=== PATIENT | female | born 1980 | race American Indian/Alaskan Native ===

== ENCOUNTER 2019-01-16 07:34 | Emergency (ER) | payer SELFPAY ==
[2019-01-16 07:41] VITALS: BP 126/88
--- NOTE | 2019-01-16 08:26 | Emergency Department Report ---
ED N/V/D HPI - General Chief complaint: Fever Stated complaint: FEVER/ABDOMINAL PAIN Time Seen by Provider: 01/16/19 08:18 Source: patient Mode of arrival: Ambulatory Limitations: No Limitations - History of Present Illness Initial comments: Mrs. Samayoa is a healthy 38-year-old female without significant past medical history who presents with fever and diarrhea. She has mild diffuse intermittent abdominal cramping. She had greater than 5 stools on and yesterday. 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 Denies back pain. Denies dysuria. Denies vaginal discharge. Denies headache. Denies sore throat. No recent travel. MD complaint: diarrhea, abdominal pain -: days(s) (2) Description of Vomiting: watery Description of Diarrhea: water Associated Abdominal Pain: Yes Location: diffuse Severity: mild Pain Scale: 5 Quality: cramping Consistency: intermittent Improves with: none Worsens with: none Context: sick contacts Associated Symptoms: malaise - Related Data Previous Rx's Medication Instructions Recorded Last Taken Type traMADol [Ultram 50 MG tab] 50 mg PO Q6HR PRN #20 tablet 08/09/14 Unknown Rx Acetaminophen/Codeine [Tylenol #3] 1 tab PO Q6H PRN #16 tab 12/22/15 Unknown Rx Sulfamethoxazole/Trimethoprim 1 each PO BID #14 tablet 12/22/15 Unknown Rx [Bactrim DS TAB] Ciprofloxacin HCl [Ciprofloxacin 500 mg PO Q12HR 3 Days #6 tab 01/16/19 Unknown Rx TAB] Loperamide [Imodium] 2 tab PO QID 2 Days #16 capsule 01/16/19 Unknown Rx Allergies Allergy/AdvReac Type Severity Reaction Status Date / Time aspirin Allergy Unknown Verified 01/16/19 07:35 ED Review of Systems ROS: Stated complaint: FEVER/ABDOMINAL PAIN Other details as noted in HPI Comment: All other systems reviewed and negative Constitutional: fever, malaise Gastrointestinal: abdominal pain, nausea, diarrhea ED Past Medical Hx - Past Medical History Previous Medical History?: No - Surgical History Past Surgical History?: No - Social History Smoking Status: Never Smoker Substance Use Type: None - Medications Home Medications: Home Medications Medication Instructions Recorded Confirmed Last Taken Type traMADol [Ultram 50 MG tab] 50 mg PO Q6HR PRN #20 tablet 08/09/14 Unknown Rx Acetaminophen/Codeine [Tylenol #3] 1 tab PO Q6H PRN #16 tab 12/22/15 Unknown Rx Sulfamethoxazole/Trimethoprim 1 each PO BID #14 tablet 12/22/15 Unknown Rx [Bactrim DS TAB] Ciprofloxacin HCl [Ciprofloxacin 500 mg PO Q12HR 3 Days #6 tab 01/16/19 Unknown Rx TAB] Loperamide [Imodium] 2 tab PO QID 2 Days #16 capsule 01/16/19 Unknown Rx ED Physical Exam - General Limitations: No Limitations General appearance: alert, in no apparent distress - Head Head exam: Present: atraumatic, normocephalic - Eye Eye exam: Present: normal appearance - ENT ENT exam: Present: mucous membranes moist - Neck Neck exam: Present: normal inspection, full ROM. Absent: tenderness, meningismus - Respiratory Respiratory exam: Present: normal lung sounds bilaterally. Absent: respiratory distress, wheezes, rales, rhonchi - Cardiovascular Cardiovascular Exam: Present: regular rate, normal rhythm, normal heart sounds. Absent: systolic murmur, diastolic murmur, rubs, gallop - GI/Abdominal GI/Abdominal exam: Present: soft, normal bowel sounds. Absent: distended, tenderness, guarding, rebound - Extremities Exam Extremities exam: Present: normal inspection - Back Exam Back exam: Present: normal inspection - Neurological Exam Neurological exam: Present: alert, oriented X3 - Psychiatric Psychiatric exam: Present: normal affect, normal mood - Skin Skin exam: Present: warm, dry, intact, normal color. Absent: rash ED Course Vital Signs 01/16/19 07:39 Temperature 98.5 F Pulse Rate 72 Respiratory 16 Rate Blood Pressure 126/88 [Left] O2 Sat by Pulse 100 Oximetry ED Medical Decision Making - Medical Decision Making This is a healthy 38-year-old female who presents with fever abdominal pain and diarrhea. 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 Did consider C. difficile colitis. However she does not appear toxic. She has only had 5-8 stools per day. Will initiate ciprofloxacin therapy as well as loperamide. She understands return to the emergency department if symptoms have not improved. Critical care attestation.: If time is entered above; I have spent that time in minutes in the direct care of this critically ill patient, excluding procedure time. ED Disposition Clinical Impression: Infectious diarrhea in adult patient Disposition: DC-01 TO HOME OR SELFCARE Is pt being admited?: No Does the pt Need Aspirin: No Condition: Stable Instructions: Acute Diarrhea (ED) Prescriptions: Ciprofloxacin HCl [Ciprofloxacin TAB] 500 mg PO Q12HR 3 Days #6 tab Loperamide [Imodium] 2 tab PO QID 2 Days #16 capsule Referrals: [facility] [Outside] - 3-5 Days Forms: Work/School Release Form(ED)
== END 2019-01-16 08:36 | disposition home or self-care (01) ==
LOC: ED 07:34
DX: A09 Infectious gastroenteritis and colitis, unspecified (principal); R50.9 Fever, unspecified; Z88.6 Allergy status to analgesic agent

== ENCOUNTER 2019-05-02 11:09 | Emergency (ER) | payer SELFPAY ==
[2019-05-02 11:20] VITALS: BP 118/74
--- NOTE | 2019-05-02 11:23 | Event Note ---
ED Screening Note ED Screening Note: states she has two abscesses under the right axilla that began a week ago states they are open and draining began two days ago states she had a subjective fever two days ago but has not had anything since has had before had had an I&D earlier this year no PMHx allergy: aspirin LNMP: two weeks ago
--- NOTE | 2019-05-02 11:24 | Emergency Department Report ---
- General Chief complaint: Skin/Abscess/Foreign Body Stated complaint: RT UNDERARM BOIL/PAIN Time Seen by Provider: 05/02/19 11:19 Source: patient Mode of arrival: Ambulatory Limitations: No Limitations - History of Present Illness Initial comments: pt is a 38 yo female who presents to the ED with c/o two abscesses under the right axilla that began a week ago. she states they are open and draining which began two days ago. the patient states she had a subjective fever two days ago but has not had one since then. pt states she has had these before. pt states she had to have an I&D earlier this year. she denies any PMHx. allergy: aspirin. LNMP: two weeks ago - Related Data Previous Rx's Medication Instructions Recorded Last Taken Type traMADoL [Ultram 50 MG tab] 50 mg PO Q6HR PRN #20 tablet 08/09/14 Unknown Rx Acetaminophen/Codeine [Tylenol #3] 1 tab PO Q6H PRN #16 tab 12/22/15 Unknown Rx Sulfamethoxazole/Trimethoprim 1 each PO BID #14 tablet 12/22/15 Unknown Rx [Bactrim DS TAB] Ciprofloxacin HCl [Ciprofloxacin 500 mg PO Q12HR 3 Days #6 tab 01/16/19 Unknown Rx TAB] Loperamide [Imodium] 2 tab PO QID 2 Days #16 capsule 01/16/19 Unknown Rx Sulfamethoxazole/Trimethoprim 1 each PO BID 7 Days #14 tablet 05/02/19 Unknown Rx [Bactrim DS TAB] Allergies Allergy/AdvReac Type Severity Reaction Status Date / Time aspirin Allergy Unknown Verified 05/02/19 11:10 Abscess Boil HPI - HPI Chief Complaint: Skin/Abscess/Foreign Body Stated Complaint: RT UNDERARM BOIL/PAIN Time Seen by Provider: 05/02/19 11:19 Home Medications: Previous Rx's Medication Instructions Recorded Last Taken Type traMADoL [Ultram 50 MG tab] 50 mg PO Q6HR PRN #20 tablet 08/09/14 Unknown Rx Acetaminophen/Codeine [Tylenol #3] 1 tab PO Q6H PRN #16 tab 12/22/15 Unknown Rx Sulfamethoxazole/Trimethoprim 1 each PO BID #14 tablet 12/22/15 Unknown Rx [Bactrim DS TAB] Ciprofloxacin HCl [Ciprofloxacin 500 mg PO Q12HR 3 Days #6 tab 01/16/19 Unknown Rx TAB] Loperamide [Imodium] 2 tab PO QID 2 Days #16 capsule 01/16/19 Unknown Rx Sulfamethoxazole/Trimethoprim 1 each PO BID 7 Days #14 tablet 05/02/19 Unknown Rx [Bactrim DS TAB] Allergies/Adverse Reactions: Allergies Allergy/AdvReac Type Severity Reaction Status Date / Time aspirin Allergy Unknown Verified 05/02/19 11:10 ED Review of Systems ROS: Stated complaint: RT UNDERARM BOIL/PAIN Other details as noted in HPI Comment: All other systems reviewed and negative ED Past Medical Hx - Past Medical History Previous Medical History?: No - Surgical History Past Surgical History?: No - Social History Smoking Status: Never Smoker Substance Use Type: None - Medications Home Medications: Home Medications Medication Instructions Recorded Confirmed Last Taken Type traMADoL [Ultram 50 MG tab] 50 mg PO Q6HR PRN #20 tablet 08/09/14 Unknown Rx Acetaminophen/Codeine [Tylenol #3] 1 tab PO Q6H PRN #16 tab 12/22/15 Unknown Rx Sulfamethoxazole/Trimethoprim 1 each PO BID #14 tablet 12/22/15 Unknown Rx [Bactrim DS TAB] Ciprofloxacin HCl [Ciprofloxacin 500 mg PO Q12HR 3 Days #6 tab 01/16/19 Unknown Rx TAB] Loperamide [Imodium] 2 tab PO QID 2 Days #16 capsule 01/16/19 Unknown Rx Sulfamethoxazole/Trimethoprim 1 each PO BID 7 Days #14 tablet 05/02/19 Unknown Rx [Bactrim DS TAB] ED Physical Exam - General Limitations: No Limitations General appearance: alert, in no apparent distress - Head Head exam: Present: atraumatic, normocephalic - Eye Eye exam: Present: normal appearance - ENT ENT exam: Present: mucous membranes moist - Neurological Exam Neurological exam: Present: alert, oriented X3 - Psychiatric Psychiatric exam: Present: normal affect, normal mood - Skin Skin exam: Present: warm, other (multiple areas of induration to the right axilla, two areas are open but no current drainage, no areas of central fluctuance, erythema and increased warmth present, no tracking up the arm) ED Course Vital Signs 05/02/19 11:19 Temperature 98.3 F Pulse Rate 87 Respiratory 16 Rate Blood Pressure 118/74 O2 Sat by Pulse 99 Oximetry ED Medical Decision Making - Medical Decision Making pt is a 38 yo female who presents to the ED with c/o two abscesses under the right axilla that began a week ago. she states they are open and draining which began two days ago. the patient states she had a subjective fever two days ago but has not had one since then. pt states she has had these before. pt states she had to have an I&D earlier this year. she denies any PMHx. allergy: aspirin. LNMP: two weeks ago. vitals are normal. on exam: multiple areas of induration to the right axilla, two areas are open but no current drainage, no areas of central fluctuance, erythema and increased warmth present, no tracking up the arm. no drainable abscess at this time, just appears to be cellulitis, pt could possibly have Hidradenitis suppurativa given she has these frequently in the axilla. pt prescribed abx and advised to use warm compresses. discussed with pt that she needed reevaluation by a PCP in 3 days to reassess. pt given prescription for bactrim. advised pt to please take medication as prescribed. follow up with a primary care doctor in the next 3 days for reexamination. use warm compresses three times a day. return to the emergency room for any new or worsening symptoms. - Differential Diagnosis abscess, cellulitis, hidradenitis suppurativa Critical care attestation.: If time is entered above; I have spent that time in minutes in the direct care of this critically ill patient, excluding procedure time. ED Disposition Clinical Impression: Cellulitis Qualifiers: Site of cellulitis: extremity Site of cellulitis of extremity: axilla Laterality: right Qualified Code(s): L03.111 - Cellulitis of right axilla Disposition: DC-01 TO HOME OR SELFCARE Is pt being admited?: No Does the pt Need Aspirin: No Condition: Stable Instructions: Cellulitis (ED) Additional Instructions: please take medication as prescribed. follow up with a primary care doctor in the next 3 days for reexamination. use warm compresses three times a day. return to the emergency room for any new or worsening symptoms. Prescriptions: Sulfamethoxazole/Trimethoprim [Bactrim DS TAB] 1 each PO BID 7 Days #14 tablet Referrals: MARY ANNE EVANS MD [Staff Physician] - 2-3 Days Forms: Work/School Release Form(ED) Time of Disposition: 11:41 Print Language: FAROESE
== END 2019-05-02 11:50 | disposition home or self-care (01) ==
LOC: ED 11:09
DX: L03.111 Cellulitis of right axilla (principal); Z79.899 Other long term (current) drug therapy; Z88.8 Allergy status to other drugs, medicaments and biological substances

== ENCOUNTER 2020-01-07 05:35 | Emergency (ER) | payer MEDICAID ==
[2020-01-07] MEDS ORDERED: HYDROmorphone 1 MG/1 ML INJ IV ONE (06:00)
[2020-01-07] MEDS ORDERED: ONDANSETRON 4 MG/2 ML INJ IV ONE (06:00)
[2020-01-07] MEDS ORDERED: SULFAMETHOXAZOLE/TRIMETHOPRIM 800/160MG DS TAB PO ONE (06:00)
[2020-01-07 06:30] LABS: Basophils % (Auto) 0.4 % (0.0-1.8); Eosinophils % (Auto) 0.3 % (0.0-4.3); Hemoglobin 11.9 gm/dl (10.1-14.3); Lymphocytes # (Auto) 1.4 K/mm3 (1.2-5.4); Lymphocytes % (Auto) 20.2 % (13.4-35.0); Mean Corpuscular HGB Conc 34 % (30-34); Mean Corpuscular Volume 88 fl (79-97); Monocytes # (Auto) 0.4 K/mm3 (0.0-0.8); Monocytes % (Auto) 5.2 % (0.0-7.3); Platelet Count 302 K/mm3 (140-440); Red Blood Count 3.96 M/mm3 (3.65-5.03)
[2020-01-07 06:42] LABS: BUN/Creatinine Ratio 9
[2020-01-07 06:54] LABS: Alanine Aminotransferase 12 units/L (7-56); Albumin 3.9 g/dL (3.9-5); Blood Urea Nitrogen 8 mg/dL (7-17); Calcium 9.1 mg/dL (8.4-10.2)
--- NOTE | 2020-01-07 08:17 | Emergency Department Report ---
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 States that she felt a little feverish to 2 days ago but has since resolved reports no nausea, no vomiting, no chest pain, no palpitations or trauma to the area no drainage. The areas is more uncomfortable with palpation and when the arm is in the outstretched position. MD complaint: abscess/boil -: Gradual Severity: mild, moderate Quality: aching, dull Consistency: constant Improves with: none Worsens with: none - Related Data Previous Rx's Medication Instructions Recorded Last Taken Type Acetaminophen/Codeine [Tylenol #3] 1 tab PO Q6H PRN #16 tab 12/22/15 Unknown Rx Sulfamethoxazole/Trimethoprim 1 each PO BID #14 tablet 12/22/15 Unknown Rx [Bactrim DS TAB] Ciprofloxacin HCl [Ciprofloxacin 500 mg PO Q12HR 3 Days #6 tab 01/16/19 Unknown Rx TAB] Loperamide [Imodium] 2 tab PO QID 2 Days #16 capsule 01/16/19 Unknown Rx Sulfamethoxazole/Trimethoprim 1 each PO BID 7 Days #14 tablet 05/02/19 Unknown Rx [Bactrim DS TAB] Clindamycin [Clindamycin CAP] 150 mg PO Q8HR #30 capsule 01/07/20 Unknown Rx traMADoL [Ultram 50 MG tab] 50 mg PO Q6HR PRN #20 tablet 01/07/20 Unknown Rx Allergies Allergy/AdvReac Type Severity Reaction Status Date / Time aspirin Allergy Unknown Verified 05/02/19 11:10 Abscess Boil HPI - HPI Chief Complaint: Skin/Abscess/Foreign Body Stated Complaint: BOIL UNDER LEFT ARM Time Seen by Provider: 01/07/20 06:56 Home Medications: Previous Rx's Medication Instructions Recorded Last Taken Type Acetaminophen/Codeine [Tylenol #3] 1 tab PO Q6H PRN #16 tab 12/22/15 Unknown Rx Sulfamethoxazole/Trimethoprim 1 each PO BID #14 tablet 12/22/15 Unknown Rx [Bactrim DS TAB] Ciprofloxacin HCl [Ciprofloxacin 500 mg PO Q12HR 3 Days #6 tab 01/16/19 Unknown Rx TAB] Loperamide [Imodium] 2 tab PO QID 2 Days #16 capsule 01/16/19 Unknown Rx Sulfamethoxazole/Trimethoprim 1 each PO BID 7 Days #14 tablet 05/02/19 Unknown Rx [Bactrim DS TAB] Clindamycin [Clindamycin CAP] 150 mg PO Q8HR #30 capsule 01/07/20 Unknown Rx traMADoL [Ultram 50 MG tab] 50 mg PO Q6HR PRN #20 tablet 01/07/20 Unknown Rx Allergies/Adverse Reactions: Allergies Allergy/AdvReac Type Severity Reaction Status Date / Time aspirin Allergy Unknown Verified 05/02/19 11:10 ED Review of Systems Comment: All other systems reviewed and negative ED Past Medical Hx - Past Medical History Previous Medical History?: No - Surgical History Past Surgical History?: No - Social History Smoking Status: Never Smoker Substance Use Type: None - Medications Home Medications: Home Medications Medication Instructions Recorded Confirmed Last Taken Type Acetaminophen/Codeine [Tylenol #3] 1 tab PO Q6H PRN #16 tab 12/22/15 Unknown Rx Sulfamethoxazole/Trimethoprim 1 each PO BID #14 tablet 12/22/15 Unknown Rx [Bactrim DS TAB] Ciprofloxacin HCl [Ciprofloxacin 500 mg PO Q12HR 3 Days #6 tab 01/16/19 Unknown Rx TAB] Loperamide [Imodium] 2 tab PO QID 2 Days #16 capsule 01/16/19 Unknown Rx Sulfamethoxazole/Trimethoprim 1 each PO BID 7 Days #14 tablet 05/02/19 Unknown Rx [Bactrim DS TAB] Clindamycin [Clindamycin CAP] 150 mg PO Q8HR #30 capsule 01/07/20 Unknown Rx traMADoL [Ultram 50 MG tab] 50 mg PO Q6HR PRN #20 tablet 01/07/20 Unknown Rx ED Physical Exam - General Limitations: No Limitations General appearance: alert, in no apparent distress - Head Head exam: Present: atraumatic, normocephalic - Eye Eye exam: Present: normal appearance - ENT ENT exam: Present: mucous membranes moist - Neck Neck exam: Present: normal inspection - Respiratory Respiratory exam: Present: normal lung sounds bilaterally. Absent: respiratory distress - Cardiovascular Cardiovascular Exam: Present: regular rate, normal rhythm. Absent: systolic murmur, diastolic murmur, rubs, gallop - GI/Abdominal GI/Abdominal exam: Present: soft, normal bowel sounds - Extremities Exam Extremities exam: Present: normal inspection - Back Exam Back exam: Present: normal inspection - Neurological Exam Neurological exam: Present: alert, oriented X3 - Psychiatric Psychiatric exam: Present: normal affect, normal mood - Skin Skin exam: Present: warm, dry, erythema, other. Absent: rash - Expanded Skin Exam Expanded 1 - Swelling to her left axilla area with induration tenderness mild cellulitis is noted. Nose no discharge. No lymphadenopathy. No lymphangitis. - Procedure Description Procedures done: PRE-OP DIAGNOSIS: *Abscess. POST-OP DIAGNOSIS: Same. PROCEDURE: incision and drainage of abscess. Performing Physician/advanced practice provider: Rigoberto Ryan_. . PROCEDURE: A timeout protocol was performed prior to initiating the procedure. The area was prepared and draped in the usual, sterile manner. The site was anesthetized with 2% lidocaine without epinephrine. A linear incision was along the local skin lines was made and the purulent material expressed. The abcess was explored thoroughly and sequestered pockets were opened. Wound was irrigated with normal saline and bleeding was minimal. Packing: Quarter inch iodoform x9 cm. . Followup: The patient tolerated the procedure well without complications. Standard post- procedure care is explained and return precautions are given. ED Medical Decision Making - Lab Data Result diagrams: 01/07/20 06:06 01/07/20 06:06 ED Disposition Clinical Impression: Abscess of axilla, left Disposition: DC-01 TO HOME OR SELFCARE Is pt being admited?: No Does the pt Need Aspirin: No Condition: Stable Instructions: Abscess Incision and Drainage (ED) Prescriptions: Clindamycin [Clindamycin CAP] 150 mg PO Q8HR #30 capsule traMADoL [Ultram 50 MG tab] 50 mg PO Q6HR PRN #20 tablet PRN Reason: Pain Referrals: [facility] [Provider Group] - 3-5 Days Forms: Accompanied Note, Work/School Release Form(ED) <NOE CRUZ - Last Filed: 01/08/20 13:50> ED Review of Systems ROS: Stated complaint: BOIL UNDER LEFT ARM Other details as noted in HPI ED Course - Reevaluation(s) Reevaluation #1: I was told by the nurse practitioner that he contacted the patient about her elevated potassium and glucose level. He stated that he told her to follow-up on this as soon as possible. 01/08/20 13:49 ED Medical Decision Making - Lab Data Result diagrams: 01/07/20 06:06 01/07/20 06:06 Critical care attestation.: If time is entered above; I have spent that time in minutes in the direct care of this critically ill patient, excluding procedure time. ED Disposition Is pt being admited?: No Does the pt Need Aspirin: No
[2020-01-07] MEDS ORDERED: SODIUM CHLORIDE 0.9% 1000 ML 1,000 ML IV ONE (08:18)
== END 2020-01-07 10:58 | disposition home or self-care (01) ==
LOC: ED 05:35
DX: L02.412 Cutaneous abscess of left axilla (principal); Z79.2 Long term (current) use of antibiotics; Z79.899 Other long term (current) drug therapy; Z88.6 Allergy status to analgesic agent
CPT/HCPCS: 10060; 36415; 80053; 82140; 84703; 85025; 96361; 96365; 96366; 96375; 99283; J1170; J2405; J7030; 80048

== ENCOUNTER 2020-01-07 15:33 | Emergency (ER) | payer MEDICAID ==
[2020-01-07 15:46] VITALS: BP 134/86
[2020-01-07 16:31] LABS: Blood Urea Nitrogen 6 mg/dL (7-17); Calcium 9.2 mg/dL (8.4-10.2); Hemolysis Index 2
[2020-01-07 16:33] LABS: BUN/Creatinine Ratio 9
[2020-01-07] MEDS ORDERED: HYDROcodone/ACETAMINOPHEN 5-325 MG TAB PO STA (17:01)
--- NOTE | 2020-01-07 17:09 | Emergency Department Report ---
ED General Adult HPI - General Chief complaint: Recheck/Abnormal Lab/Rx Stated complaint: BLOOD WORK Time Seen by Provider: 01/07/20 15:50 Source: patient Mode of arrival: Ambulatory Limitations: No Limitations - History of Present Illness Initial comments: 39-year-old F [place] female seen earlier today for an abscess on her left arm which was incised and drained after. Labs were ordered by the previous provider and found to have a potassium that was elevated and she returns today to have it rechecked. Asymptomatic states that her incision site feels well but having some dull throbbing to the region reports no fevers chills or sweats. No known history of any diabetes. - Related Data Previous Rx's Medication Instructions Recorded Last Taken Type Acetaminophen/Codeine [Tylenol #3] 1 tab PO Q6H PRN #16 tab 12/22/15 Unknown Rx Sulfamethoxazole/Trimethoprim 1 each PO BID #14 tablet 12/22/15 Unknown Rx [Bactrim DS TAB] Ciprofloxacin HCl [Ciprofloxacin 500 mg PO Q12HR 3 Days #6 tab 01/16/19 Unknown Rx TAB] Loperamide [Imodium] 2 tab PO QID 2 Days #16 capsule 01/16/19 Unknown Rx Sulfamethoxazole/Trimethoprim 1 each PO BID 7 Days #14 tablet 05/02/19 Unknown Rx [Bactrim DS TAB] Clindamycin [Clindamycin CAP] 150 mg PO Q8HR #30 capsule 01/07/20 Unknown Rx traMADoL [Ultram 50 MG tab] 50 mg PO Q6HR PRN #20 tablet 01/07/20 Unknown Rx Allergies Allergy/AdvReac Type Severity Reaction Status Date / Time aspirin Allergy Unknown Verified 05/02/19 11:10 ED Review of Systems ROS: Stated complaint: BLOOD WORK Other details as noted in HPI Comment: All other systems reviewed and negative ED Past Medical Hx - Past Medical History Previous Medical History?: No - Surgical History Past Surgical History?: No - Social History Smoking Status: Never Smoker Substance Use Type: None - Medications Home Medications: Home Medications Medication Instructions Recorded Confirmed Last Taken Type Acetaminophen/Codeine [Tylenol #3] 1 tab PO Q6H PRN #16 tab 12/22/15 Unknown Rx Sulfamethoxazole/Trimethoprim 1 each PO BID #14 tablet 12/22/15 Unknown Rx [Bactrim DS TAB] Ciprofloxacin HCl [Ciprofloxacin 500 mg PO Q12HR 3 Days #6 tab 01/16/19 Unknown Rx TAB] Loperamide [Imodium] 2 tab PO QID 2 Days #16 capsule 01/16/19 Unknown Rx Sulfamethoxazole/Trimethoprim 1 each PO BID 7 Days #14 tablet 05/02/19 Unknown Rx [Bactrim DS TAB] Clindamycin [Clindamycin CAP] 150 mg PO Q8HR #30 capsule 01/07/20 Unknown Rx traMADoL [Ultram 50 MG tab] 50 mg PO Q6HR PRN #20 tablet 01/07/20 Unknown Rx ED Physical Exam - General Limitations: No Limitations General appearance: alert, in no apparent distress - Head Head exam: Present: atraumatic, normocephalic - Eye Eye exam: Present: normal appearance - ENT ENT exam: Present: mucous membranes moist - Neck Neck exam: Present: normal inspection - Respiratory Respiratory exam: Present: normal lung sounds bilaterally. Absent: respiratory distress - Cardiovascular Cardiovascular Exam: Present: regular rate, normal rhythm. Absent: systolic murmur, diastolic murmur, rubs, gallop - GI/Abdominal GI/Abdominal exam: Present: soft, normal bowel sounds - Extremities Exam Extremities exam: Present: normal inspection - Back Exam Back exam: Present: normal inspection - Neurological Exam Neurological exam: Present: alert, oriented X3 - Psychiatric Psychiatric exam: Present: normal affect, normal mood - Skin Skin exam: Present: warm, dry, intact, normal color. Absent: rash ED Course Vital Signs 01/07/20 15:43 Temperature 98.2 F Pulse Rate 100 H Respiratory 16 Rate Blood Pressure 134/86 [Left] O2 Sat by Pulse 100 Oximetry ED Medical Decision Making - Lab Data Result diagrams: 01/07/20 15:54 - Medical Decision Making Normal potassium currently 3.4 which is improved from 5.3 as well as her blood sugar which is now 126 but nonfasting Critical care attestation.: If time is entered above; I have spent that time in minutes in the direct care of this critically ill patient, excluding procedure time. ED Disposition Clinical Impression: Abscess of axilla, left, Normal exam Disposition: DC- TO HOME OR SELFCARE Is pt being admited?: No Does the pt Need Aspirin: No Condition: Stable Referrals: [facility] [Provider Group] - 3-5 Days
== END 2020-01-07 17:36 | disposition home or self-care (01) ==
LOC: ED 15:33
DX: L02.412 Cutaneous abscess of left axilla (principal); Z79.2 Long term (current) use of antibiotics; Z79.899 Other long term (current) drug therapy; Z88.6 Allergy status to analgesic agent
CPT/HCPCS: 36415; 80048

== ENCOUNTER 2020-11-22 17:53 | Emergency (ER) | payer MEDICAID ==
[2020-11-22 18:10] VITALS: BP 129/85
--- NOTE | 2020-11-22 20:18 | Emergency Department Report ---
<PEDRO MASTERSON - Last Filed: 11/22/20 20:14> - General Chief Complaint: Skin/Abscess/Foreign Body Stated Complaint: BOIL Time Seen by Provider: 11/22/20 20:14 Source: patient Mode of arrival: Ambulatory Limitations: No Limitations - History of Present Illness Initial Comments: 40-year-old -Polish female presents to the emergency room for a boil to her right underarm x4 days. Patient states he attempted to pop at home and oozing pus warm to touch denies any fever. Patient states that she gets these every so often. Patient has been using warm compresses. Patient patient denies any nausea vomiting. Extremity Location: Right: Shoulder Patient Tetanus UTD: Yes - Related Data Previous Rx's Medication Instructions Recorded Last Taken Type Sulfamethoxazole/Trimethoprim 1 each PO BID #14 tablet 12/22/15 Unknown Rx [Bactrim DS TAB] Ciprofloxacin HCl [Ciprofloxacin 500 mg PO Q12HR 3 Days #6 tab 01/16/19 Unknown Rx TAB] Loperamide [Imodium] 2 tab PO QID 2 Days #16 capsule 01/16/19 Unknown Rx Sulfamethoxazole/Trimethoprim 1 each PO BID 7 Days #14 tablet 05/02/19 Unknown Rx [Bactrim DS TAB] Clindamycin [Clindamycin CAP] 150 mg PO Q8HR #30 capsule 01/07/20 Unknown Rx traMADoL [Ultram 50 MG tab] 50 mg PO Q6HR PRN #20 tablet 01/07/20 Unknown Rx Acetaminophen/Codeine [Tylenol 1 tab PO Q6H PRN #16 tab 11/22/20 Unknown Rx /Codeine # 3 tab] Sulfamethoxazole/Trimethoprim 1 each PO BID 7 Days #14 tablet 11/22/20 Unknown Rx [Bactrim DS TAB] Allergies Allergy/AdvReac Type Severity Reaction Status Date / Time aspirin Allergy Unknown Verified 11/22/20 18:10 ED Review of Systems Comment: All other systems reviewed and negative ED Past Medical Hx - Social History Smoking Status: Never Smoker Substance Use Type: None - Medications Home Medications: Home Medications Medication Instructions Recorded Confirmed Last Taken Type Sulfamethoxazole/Trimethoprim 1 each PO BID #14 tablet 12/22/15 Unknown Rx [Bactrim DS TAB] Ciprofloxacin HCl [Ciprofloxacin 500 mg PO Q12HR 3 Days #6 tab 01/16/19 Unknown Rx TAB] Loperamide [Imodium] 2 tab PO QID 2 Days #16 capsule 01/16/19 Unknown Rx Sulfamethoxazole/Trimethoprim 1 each PO BID 7 Days #14 tablet 05/02/19 Unknown Rx [Bactrim DS TAB] Clindamycin [Clindamycin CAP] 150 mg PO Q8HR #30 capsule 01/07/20 Unknown Rx traMADoL [Ultram 50 MG tab] 50 mg PO Q6HR PRN #20 tablet 01/07/20 Unknown Rx Acetaminophen/Codeine [Tylenol 1 tab PO Q6H PRN #16 tab 11/22/20 Unknown Rx /Codeine # 3 tab] Sulfamethoxazole/Trimethoprim 1 each PO BID 7 Days #14 tablet 11/22/20 Unknown Rx [Bactrim DS TAB] ED Physical Exam - General Limitations: No Limitations General appearance: alert, in no apparent distress - Head Head exam: Present: atraumatic, normocephalic - Eye Eye exam: Present: normal appearance - ENT ENT exam: Present: mucous membranes moist - Neck Neck exam: Present: normal inspection - Respiratory Respiratory exam: Absent: accessory muscle use - Back Exam Back exam: Present: normal inspection - Neurological Exam Neurological exam: Present: alert, oriented X3, normal gait - Psychiatric Psychiatric exam: Present: normal affect, normal mood - Expanded Skin Exam Expanded Type of lesion: Present: other (Boil) Distribution of rash: RUE Description of rash: Present: tenderness, erythematous, swelling ED Medical Decision Making - Medical Decision Making 40-year-old -Polish female presents to the emergency room for a boil to her right underarm x4 days. Patient states he attempted to pop at home and oozing pus warm to touch denies any fever. Patient states that she gets these every so often. Patient has been using warm compresses. Patient patient denies any nausea vomiting. Patient be placed on Bactrim double strength for 10 days. Encouraged to continue with warm compresses Tylenol or ibuprofen for pain. Patient will be referred to dermatology. ED Disposition Clinical Impression: Boil, axilla Qualifiers: Laterality: right Qualified Code(s): L02.421 - Furuncle of right axilla Disposition: DC- TO HOME OR SELFCARE Is pt being admited?: No Does the pt Need Aspirin: No Condition: Good Instructions: Skin Abscess, [id number] Additional Instructions: Complete antibiotics as prescribed pain medication as needed. Please do not operate heavy machinery while taking Tylenol 3. Is very important for you to continue with the warm compresses and follow-up with your primary care provider. Prescriptions: Sulfamethoxazole/Trimethoprim [Bactrim DS TAB] 1 each PO BID 7 Days #14 tablet Acetaminophen/Codeine [Tylenol /Codeine # 3 tab] 1 tab PO Q6H PRN #16 tab PRN Reason: Pain Referrals: [facility] [Provider Group] - 3-5 Days [facility] [Provider Group] - 3-5 Days Forms: Work/School Release Form(ED) <MARLY GRADY - Last Filed: 11/23/20 00:20> ED Review of Systems ROS: Stated complaint: BOIL Other details as noted in HPI ED Course Vital Signs 11/22/20 18:10 Temperature 98.2 F Pulse Rate 86 Respiratory 20 Rate Blood Pressure 129/85 [Left] O2 Sat by Pulse 100 Oximetry - Reevaluation(s) Reevaluation #1: 11/23/20 00:19 Chart is reviewed. Have instructed physician assistant project manager to call patient back, and add on either Flagyl, 500 mg every 8 hours, for the next 7 days, or clindamycin, 300 mg, every 8 hours for the next 7 days. Have also instructed physician assistant project manager counseled patient to follow-up for wound check in 3 to 4 days for repeat evaluation. Patient reports that they are allergic to penicillin, therefore, Augmentin not prescribed. Patient should also avoid alcohol consumption if prescribed Flagyl. Critical care attestation.: If time is entered above; I have spent that time in minutes in the direct care of this critically ill patient, excluding procedure time. ED Disposition Is pt being admited?: No Does the pt Need Aspirin: No
== END 2020-11-22 21:00 | disposition home or self-care (01) ==
LOC: ED 17:53
DX: L02.421 Furuncle of right axilla (principal); Z88.6 Allergy status to analgesic agent; Z79.899 Other long term (current) drug therapy
CPT/HCPCS: 99282

== ENCOUNTER 2021-08-04 15:40 | Emergency (ER) | payer OTHER, MEDICAID ==
[2021-08-04] MEDS ORDERED: IBUPROFEN 800 MG TAB PO ONE (21:27)
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
[2021-08-04 23:07] VITALS: BP 133/82
== END 2021-08-04 23:09 | disposition home or self-care (01) ==
LOC: ED 15:40
DX: S39.012A Strain of muscle, fascia and tendon of lower back, initial encounter (principal); M79.18 Myalgia, other site; Z91.09 Other allergy status, other than to drugs and biological substances; V49.9XXA Car occupant (driver) (passenger) injured in unspecified traffic accident, initial encounter; Y93.89 Activity, other specified; Y92.89 Other specified places as the place of occurrence of the external cause; Y99.8 Other external cause status
CPT/HCPCS: 72100; 99283

== ENCOUNTER 2021-10-07 20:18 | Emergency (ER) | payer MEDICAID, OTHER ==
[2021-10-07 21:16] LABS: Bacteria,Urine 1+ /HPF (Negative); Bilirubin,Urine NEG (Negative); Blood,Urine NEG (Negative); Color,Urine Amber (Yellow); Mucus,Urine FEW /HPF; Protein,Urine <15 mg/dL mg/dL (Negative)
[2021-10-07 21:18] LABS: WBC,Urine > 182.0 /HPF (0.0-6.0)
--- NOTE | 2021-10-08 00:28 | Emergency Department Report ---
ED Female HPI - General Chief complaint: Urogenital-Female Stated complaint: UTI Source: patient Mode of arrival: Ambulatory Limitations: No Limitations - History of Present Illness Initial comments: 41-year-old female presents to the ED complaining of dysuria and urgency x3 days. Patient states that she has been taking [id number] Azo without any relief. Patient denies any abdominal pain at present time. Patient states that pain is a current 7 out of 10 upon urination. Patient denies any fever chills or nausea or vomiting present. Patient states that she has acute urinary tract infection in the past. Patient states that she is not having any unprotected sex at present time. She states last menstrual cycle was 3 weeks ago. Patient is alert and oriented x3. No acute distress noted. No ill appearance noted. MD Complaint: dysuria Onset/Timin -: days(s) Severity scale (0 -10): 6 Quality: burning Consistency: intermittent Improves with: urination Are you Now?: No Associated Symptoms: denies other symptoms - Related Data Previous Rx's Medication Instructions Recorded Last Taken Type Sulfamethoxazole/Trimethoprim 1 each PO BID #14 tablet 12/22/15 Unknown Rx [Bactrim DS TAB] Ciprofloxacin HCl [Ciprofloxacin 500 mg PO Q12HR 3 Days #6 tab 01/16/19 Unknown Rx TAB] Loperamide [Imodium] 2 tab PO QID 2 Days #16 capsule 01/16/19 Unknown Rx Sulfamethoxazole/Trimethoprim 1 each PO BID 7 Days #14 tablet 05/02/19 Unknown Rx [Bactrim DS TAB] Clindamycin [Clindamycin CAP] 150 mg PO Q8HR #30 capsule 01/07/20 Unknown Rx traMADoL [Ultram 50 MG tab] 50 mg PO Q6HR PRN #20 tablet 01/07/20 Unknown Rx Acetaminophen/Codeine [Tylenol 1 tab PO Q6H PRN #16 tab 11/22/20 Unknown Rx /Codeine # 3 tab] Sulfamethoxazole/Trimethoprim 1 each PO BID 7 Days #14 tablet 11/22/20 Unknown Rx [Bactrim DS TAB] Naproxen 500 mg PO BID PRN #30 tab 08/04/21 Unknown Rx Hyoscyamine Subl [Levsin Sl 0.125 0.125 mg SL Q4HR PRN 5 Days #20 10/08/21 Unknown Rx TAB] tablet Phenazopyridine [Pyridium] 200 mg PO BID 3 Days #6 tab 10/08/21 Unknown Rx levoFLOXacin [Levaquin] 750 mg PO QDAY 7 Days #7 tablet 10/08/21 Unknown Rx Allergies Allergy/AdvReac Type Severity Reaction Status Date / Time aspirin Allergy Unknown Verified 11/22/20 18:10 ED Review of Systems ROS: Stated complaint: UTI Other details as noted in HPI Constitutional: denies: chills, fever Eyes: denies: eye pain, eye discharge, vision change ENT: denies: ear pain, throat pain Respiratory: denies: cough, shortness of breath, wheezing Cardiovascular: denies: chest pain, palpitations Endocrine: no symptoms reported Gastrointestinal: denies: abdominal pain, nausea, diarrhea Genitourinary: urgency, dysuria, frequency. denies: discharge Musculoskeletal: denies: back pain, joint swelling, arthralgia Skin: denies: rash, lesions Neurological: denies: headache, weakness, paresthesias Psychiatric: denies: anxiety, depression Hematological/Lymphatic: denies: easy bleeding, easy bruising ED Past Medical Hx - Social History Smoking Status: Never Smoker Substance Use Type: None - Medications Home Medications: Home Medications Medication Instructions Recorded Confirmed Last Taken Type Sulfamethoxazole/Trimethoprim 1 each PO BID #14 tablet 12/22/15 Unknown Rx [Bactrim DS TAB] Ciprofloxacin HCl [Ciprofloxacin 500 mg PO Q12HR 3 Days #6 tab 01/16/19 Unknown Rx TAB] Loperamide [Imodium] 2 tab PO QID 2 Days #16 capsule 01/16/19 Unknown Rx Sulfamethoxazole/Trimethoprim 1 each PO BID 7 Days #14 tablet 05/02/19 Unknown Rx [Bactrim DS TAB] Clindamycin [Clindamycin CAP] 150 mg PO Q8HR #30 capsule 01/07/20 Unknown Rx traMADoL [Ultram 50 MG tab] 50 mg PO Q6HR PRN #20 tablet 01/07/20 Unknown Rx Acetaminophen/Codeine [Tylenol 1 tab PO Q6H PRN #16 tab 11/22/20 Unknown Rx /Codeine # 3 tab] Sulfamethoxazole/Trimethoprim 1 each PO BID 7 Days #14 tablet 11/22/20 Unknown Rx [Bactrim DS TAB] Naproxen 500 mg PO BID PRN #30 tab 08/04/21 Unknown Rx Hyoscyamine Subl [Levsin Sl 0.125 0.125 mg SL Q4HR PRN 5 Days #20 10/08/21 Unknown Rx TAB] tablet Phenazopyridine [Pyridium] 200 mg PO BID 3 Days #6 tab 10/08/21 Unknown Rx levoFLOXacin [Levaquin] 750 mg PO QDAY 7 Days #7 tablet 10/08/21 Unknown Rx ED Physical Exam - General Limitations: No Limitations General appearance: alert, in no apparent distress - Head Head exam: Present: atraumatic, normocephalic - Eye Eye exam: Present: normal appearance - ENT ENT exam: Present: mucous membranes moist - Neck Neck exam: Present: normal inspection - Respiratory Respiratory exam: Present: normal lung sounds bilaterally. Absent: respiratory distress - Cardiovascular Cardiovascular Exam: Present: regular rate, normal rhythm. Absent: systolic murmur, diastolic murmur, rubs, gallop - GI/Abdominal GI/Abdominal exam: Present: soft, normal bowel sounds - Extremities Exam Extremities exam: Present: normal inspection - Back Exam Back exam: Present: normal inspection - Neurological Exam Neurological exam: Present: alert, oriented X3 - Psychiatric Psychiatric exam: Present: normal affect, normal mood - Skin Skin exam: Present: warm, dry, intact, normal color. Absent: rash ED Course Vital Signs 10/07/21 10/08/21 20:26 01:12 Temperature 98.3 F 98.8 F Pulse Rate 83 89 Respiratory 18 15 Rate Blood Pressure 138/96 Blood Pressure 133/77 [Left] O2 Sat by Pulse 100 100 Oximetry ED Medical Decision Making - Medical Decision Making 41-year-old female presents to the ED complaining of dysuria and urgency x3 days. Patient states that she has been taking [id number] Azo without any relief. Patient denies any abdominal pain at present time. Patient states that pain is a current 7 out of 10 upon urination. Patient denies any fever chills or nausea or vomiting present. Patient states that she has acute urinary tract infection in the past. Patient states that she is not having any unprotected sex at present time. She states last menstrual cycle was 3 weeks ago. Patient is alert and oriented x3. No acute distress noted. No ill appearance noted. Physical examination is unremarkable. Patient treated for acute urinary tract infection rechecked the patient is resting quietly quietly and comfortable and feeling better. I discussed the results of diagnostic study, my clinical impression and the plan for further treatment with the patient. Patient agrees with plan and discharge at this present time. All question addressed. I have given the patient instruction regarding a diagnosis ,expectation ,follow- up and return precaution. I explained to the patient that emergent condition may arise and to return to the ED for new worsen and any new persisting condition. I have explained the importance of following up with the primary care physician or referral physician listed below has instructed. The patient verbalized understanding of discharge instruction. Abnormal Lab Results 10/07/21 10/08/21 Unknown Unknown Urine Color Isabella Urine Turbidity Clear Urine pH 5.0 Ur Specific [place] 1.009 Urine Protein <15 mg/dl Urine Glucose (UA) Neg Urine Ketones Neg Urine Blood Neg Urine Nitrite Pos Urine Bilirubin Neg Urine Urobilinogen 4.0 Ur Leukocyte Esterase Lg Urine WBC (Auto) > 182.0 H Urine RBC (Auto) 23.0 U Epithel Cells (Auto) 9.0 Urine Bacteria (Auto) 1+ Urine Mucus Few Urine Yeast (Budding) 2+ Urine HCG, Qual Negative Critical care attestation.: If time is entered above; I have spent that time in minutes in the direct care of this critically ill patient, excluding procedure time. ED Disposition Clinical Impression: Acute urinary tract infection Disposition: 01 HOME / SELF CARE / HOMELESS Is pt being admited?: No Does the pt Need Aspirin: No Condition: Stable Instructions: Antibiotic Medicine, Adult, [id number], Urinary Tract Infection, Adult, [id number] Additional Instructions: Take medication as prescribed Return to the ED for any worsening symptom Prescriptions: levoFLOXacin [Levaquin] 750 mg PO QDAY 7 Days #7 tablet Hyoscyamine Subl [Levsin Sl 0.125 TAB] 0.125 mg SL Q4HR PRN 5 Days #20 tablet PRN Reason: Spasms Phenazopyridine [Pyridium] 200 mg PO BID 3 Days #6 tab Referrals: [facility] [Provider Group] - 3-5 Days Forms: Work/School Release Form(ED) Time of Disposition: 00:36
[2021-10-08 00:30] LABS: HCG Qualitative,Urine Negative (Negative)
[2021-10-08 01:14] VITALS: BP 133/77
== END 2021-10-08 01:14 | disposition home or self-care (01) ==
LOC: ED 20:18
DX: N39.0 Urinary tract infection, site not specified (principal); Z91.09 Other allergy status, other than to drugs and biological substances; Z79.899 Other long term (current) drug therapy
CPT/HCPCS: 81001; 81025; 99283